=== PATIENT | female | born 1975 | race Caucasian/White ===

== ENCOUNTER → 2017-02-06 | Outpatient (CLI) | payer OTHER ==
[~2017-02-06] VITALS: Ht 163.8 cm; Wt 59.1 kg
[2017-02-06 15:03] VITALS: BP 128/84; PULSE 102; Ht 163.8 cm; Wt 59.1 kg
== END | disposition home or self-care (01) ==
LOC: C.NEUR 14:15
PROVIDERS: ATTEND Internal Medicine Pulmonary Disease
DX: G47.33 Obstructive sleep apnea (adult) (pediatric) (principal); R53.83 Other fatigue

== ENCOUNTER → 2017-02-17 | Outpatient (CLI) | payer OTHER ==
--- NOTE | 2017-02-22 10:53 | Sleep Study ---
Sleep Study Report Date of Service: 02/17/2017 Sleep Study Report Clinical data: The patient is a 41-year-old female with a history of disturbed nocturnal sleep and fatigue. There is a family history of obstructive sleep apnea. Her BMI is 22.02. On the evening of 02/17/2017, a home sleep apnea test was performed using a Pramana type 3 monitor. Recording results: Total recording time was 10 hours. Patient monitoring time and estimated sleep time was 8.8 hours. Respiratory data: The patient had a total of 2 respiratory events, both hypopneas. Hypopneas were scored according to the 4 percent desaturation rule. There were no apneas noted. The ROBEL was normal at 0.2 events per hour. The maximum respiratory event was 26 seconds. Oximetry data: The mean saturation for the night was 94 percent. The minimum saturation was 91 percent. Heart rate data: The heart rates ranged from 45 up to 54 beats per minute. Snoring data: Snoring was present throughout the test. Impressions: 1. No evidence of obstructive sleep apnea 2. Primary snoring Recommendations: The patient should follow up with Dr. Leola Marion who referred the patient for the sleep study. Copies To 1: Leola Marion M.D.; Michael Zamudio DO
== END | disposition home or self-care (01) ==
LOC: C.NEUR 08:58
PROVIDERS: ATTEND Internal Medicine Pulmonary Disease
DX: G47.33 Obstructive sleep apnea (adult) (pediatric) (principal)